=== PATIENT | male | born 1940 | race Caucasian/White ===

== ENCOUNTER 2017-01-12 21:48 | Inpatient (IN) | payer MEDICARE, MEDICAID ==
[~2017-01-12] VITALS: Ht 167.6 cm; Wt 77.1 kg
[~2017-01-12 21:48] MED LIST: ALLO100T PO; ASPI-1158 PO; BISA-81 PO; CALC667C PO; CARV6.2548 PO; FISH1CAP38 PO; FURO80TA3 PO; LABE300T PO; LEVO25TA7 PO; LINA145C PO; LOSA100T14 PO; NATE120T PO; OMEG1CAP17 PO; OMEP20CA10 PO; PRAV80TA21 PO; REN800 PO
[2017-01-12] MEDS ORDERED: ONDANSETRON HCL 4MG/2ML VIAL IV STA (22:20)
[2017-01-12] MEDS ORDERED: SODIUM CHLORIDE 0.9% 1,000 ML IV ONE (22:20)
[2017-01-12 22:43] LABS: BASOPHILS % 0.8 % (0.0-2.0); HEMATOCRIT. 28.7 % (42.0-52.0); HEMOGLOBIN. 9.6 g/dL (14.0-18.0); LYMPHOCYTES % 14.3 % (20.0-50.0); MEAN CORPUSCULAR HEMOGLOBIN 33.1 pg (28.0-32.0); MEAN CORPUSCULAR VOLUME 99.2 fL (80.0-94.0); MEAN PLATELET VOLUME 8.3 fl (7.4-10.4); MONOCYTES % 9.9 % (2.0-8.0); PLATELET 120 x1000/uL (130-400); RED BLOOD CELL COUNT 2.89 mill/uL (4.7-6.1); RED CELL DISTRIBUTION WIDTH 14.4 % (11.6-14.6)
[2017-01-12 22:45] LABS: INR 1.1; PROTHROMBIN TIME 11.1 sec (9.4-11.6)
[2017-01-12 22:49] LABS: CHLORIDE 108 mEq/L (98-107)
[2017-01-12 22:51] LABS: CARBON DIOXIDE 25 mEq/L (21-32)
[2017-01-12 22:58] LABS: TROPONIN I 0.04 ng/mL (0.00-0.04)
[2017-01-12] MEDS ORDERED: INSULIN REGULAR (HUMULIN R) 300UNITS/3ML IV ONE (23:00)
[2017-01-12] MEDS ORDERED: SODIUM BICARBONATE 8.4% 1 MEQ/ML 50ML SYR IV ONE (23:00)
[2017-01-12] MEDS ORDERED: DEXTROSE 50% WATER 50ML SYRINGE IV ONE (23:00)
[2017-01-12] MEDS ORDERED: CALCIUM CHLORIDE 1GM/10ML SYR IV ONE (23:00)
[2017-01-12] MEDS ORDERED: SODIUM POLYSTYRENE SULFONATE 15 G/60 ML BOT PO ONE (23:00)
[2017-01-13] MEDS ORDERED: LEVOFLOXACIN 750MG PREMIX 150 ML IV ONE (00:30)
[2017-01-13 07:30] LABS: COLOR URINE YELLOW (YELLOW); GLUCOSE URINE NEGATIVE (NEGATIVE); KETONES URINE NEGATIVE (NEGATIVE); LEUKOCYTE ESTERASE URINE NEGATIVE (NEGATIVE); NITRITE URINE NEGATIVE (NEGATIVE); OCCULT BLOOD URINE NEGATIVE (NEGATIVE); PROTEIN URINE 2+ (NEGATIVE); SPECIFIC GRAVITY URINE 1.015 (1.005-1.030)
[2017-01-13] MEDS ORDERED: INSULIN LISPRO 100 UNITS/ML SUBCUT SCH (07:50)
[2017-01-13] MEDS: BLOOD SUGAR DIAGNOSTIC STRIP TEST SCH ×4 (09:00→21:01)
[2017-01-13] MEDS ORDERED: FAMOTIDINE 20MG TABLET PO SCH (09:00)
[2017-01-13] MEDS: LOSARTAN POTASSIUM 100 MG TABLET PO SCH (10:00)
[2017-01-13] MEDS: ASPIRIN 81MG TABLET PO SCH (10:01)
[2017-01-13] MEDS: ALLOPURINOL 100 MG TABLET PO SCH (10:01)
[2017-01-13] MEDS: LEVOTHYROXINE SODIUM 50MCG TABLET PO SCH (10:01)
[2017-01-13] MEDS: FAMOTIDINE 20MG TABLET PO SCH (10:01)
[2017-01-13] MEDS: LABETALOL HCL 300MG TABLET PO SCH ×2 (10:02→20:49)
[2017-01-13] MEDS ORDERED: LIDOCAINE HCL/PF 1% 2ML VIAL ONE (11:07)
[2017-01-13 11:09] VITALS: BP 149/83
[2017-01-13] MEDS ORDERED: CLONIDINE 0.1MG TABLET PO PRN (11:15)
[2017-01-13 11:37] LABS: BG BASE EXCESS -1.7 mmol/L (-2.0-2.0); BG CARBOXYHEMOGLOBIN 0.3 % (0.5-1.5); BG DEOXYHEMOGLOBIN 6.6 % (0.0-5.0); BG HCO3 ACT 23.4 mmol/L (22.0-26.0); BG OXYGEN SATURATION 93.4 % (92.0-98.5); BG OXYHEMOGLOBIN 93.1 % (94.0-97.0); BG PCO2 41.2 mmHg (35.0-45.0); BG PH 7.372 (7.350-7.450); BG SAMPLE SITE RIGHT RADIAL; BG TOTAL HEMOGLOBIN 9.9 g/dL (12.0-18.0); BG VENT MODE ROOM AIR
[2017-01-13 11:57] LABS: PHOSPHORUS 4.1 mg/dL (2.5-4.9)
[2017-01-13] MEDS ORDERED: PIPERACILLIN/TAZ 2.25G PREMIX 50 ML IV SCH (12:00)
[2017-01-13] MEDS: INSULIN LISPRO (LOW DOSE) 100 UNITS/ML SUBCUT SCH ×2 (12:10→16:36)
[2017-01-13] MEDS: NATEGLINIDE 120 MG PO SCH ×2 (14:32→16:46)
[2017-01-13] MEDS: BISACODYL 5MG TABLET PO SCH (14:32)
[2017-01-13] MEDS: PIPERACILLIN/TAZ 2.25G PREMIX 50 ML IV SCH ×2 (14:32→21:12)
[2017-01-13] MEDS: SEVELAMER CARBONATE 800 MG TABLET PO SCH ×2 (14:33→16:46)
[2017-01-13] MEDS: LINZESS 145 MCG PO SCH (14:33)
[2017-01-13 16:00] VITALS: BP 140/79
[2017-01-13] MEDS ORDERED: HEPARIN SODIUM 1,000 UNIT/1ML VIAL IV NR (17:19)
[2017-01-13 20:00] VITALS: BP 155/52
[2017-01-13] MEDS ORDERED: EPOETIN ALFA 10000UNITS/ML VIAL SUBCUT SCH (21:00)
[2017-01-13] MEDS: ATORVASTATIN CALCIUM 40MG TABLET PO SCH (21:12)
[2017-01-13] MEDS ORDERED: ACETAMINOPHEN 325MG TABLET PO PRN (21:45)
[2017-01-13 22:00] VITALS: BP 127/55
[2017-01-14] VITALS (8 sets, daily range): BP systolic 116–160; BP diastolic 49–94
[2017-01-14] MEDS: PIPERACILLIN/TAZ 2.25G PREMIX 50 ML IV SCH ×3 (05:10→22:05)
[2017-01-14] MEDS: LEVOTHYROXINE SODIUM 50MCG TABLET PO SCH (06:41)
[2017-01-14] MEDS: NATEGLINIDE 120 MG PO SCH ×3 (06:42→18:34)
[2017-01-14] MEDS: SEVELAMER CARBONATE 800 MG TABLET PO SCH ×3 (06:42→18:34)
[2017-01-14] MEDS: INSULIN LISPRO (LOW DOSE) 100 UNITS/ML SUBCUT SCH ×3 (06:42→17:10)
[2017-01-14] MEDS: BLOOD SUGAR DIAGNOSTIC STRIP TEST SCH ×4 (06:42→20:24)
[2017-01-14 06:52] LABS: HEMATOCRIT. 25.6 % (42.0-52.0); HEMOGLOBIN. 8.7 g/dL (14.0-18.0); MEAN CORPUSCULAR VOLUME 97.2 fL (80.0-94.0); PLATELET 93 x1000/uL (130-400); RED BLOOD CELL COUNT 2.64 mill/uL (4.7-6.1); RED CELL DISTRIBUTION WIDTH 13.9 % (11.6-14.6)
[2017-01-14 08:31] LABS: PLATELET ESTIMATE DECREASED
[2017-01-14] MEDS: LINZESS 145 MCG PO SCH (09:32)
[2017-01-14] MEDS: ALLOPURINOL 100 MG TABLET PO SCH (09:33)
[2017-01-14] MEDS: FAMOTIDINE 20MG TABLET PO SCH (09:33)
[2017-01-14] MEDS: ASPIRIN 81MG TABLET PO SCH (09:34)
[2017-01-14] MEDS: LABETALOL HCL 300MG TABLET PO SCH ×2 (09:34→21:59)
[2017-01-14] MEDS: LOSARTAN POTASSIUM 100 MG TABLET PO SCH (09:34)
[2017-01-14] MEDS: BISACODYL 5MG TABLET PO SCH (09:36)
[2017-01-14] MEDS ORDERED: LACTULOSE 20G/30ML UDC PO NR (12:00)
[2017-01-14 13:56] LABS: FOLIC ACID (FOLATE) SERUM 9.6 ng/mL (>5.38)
[2017-01-14] MEDS: SENNOSIDES/DOCUSATE SOD 8.6/50MG TABLET PO SCH (14:00)
[2017-01-14] MEDS: IRON SUCROSE COMPLEX 100 MG/5 ML ML IV SCH (14:00)
[2017-01-14] MEDS ORDERED: SORBITOL 70% SOLN 30ML PO NR (15:00)
[2017-01-14] MEDS: ATORVASTATIN CALCIUM 40MG TABLET PO SCH (21:59)
[2017-01-15] VITALS: BP 118/61
[2017-01-15 04:00] VITALS: BP 144/75
[2017-01-15] MEDS: PIPERACILLIN/TAZ 2.25G PREMIX 50 ML IV SCH ×2 (05:26→13:03)
[2017-01-15] MEDS: BLOOD SUGAR DIAGNOSTIC STRIP TEST SCH ×2 (06:01→11:15)
[2017-01-15] MEDS: INSULIN LISPRO (LOW DOSE) 100 UNITS/ML SUBCUT SCH ×2 (06:04→11:15)
[2017-01-15] MEDS ORDERED: LEVOTHYROXINE SODIUM 75MCG TABLET PO SCH (07:10)
[2017-01-15 07:16] LABS: BASOPHILS % 0.7 % (0.0-2.0); EOSINOPHILS % 5.7 % (0.0-5.0); HEMATOCRIT. 26.8 % (42.0-52.0); HEMOGLOBIN. 8.9 g/dL (14.0-18.0); LYMPHOCYTES % 14.1 % (20.0-50.0); MEAN CORPUSCULAR HEMOGLOBIN 32.7 pg (28.0-32.0); MEAN CORPUSCULAR VOLUME 97.7 fL (80.0-94.0); MEAN PLATELET VOLUME 8.8 fl (7.4-10.4); MONOCYTES % 13.7 % (2.0-8.0); NEUTROPHILS % 65.8 % (40.0-76.0); PLATELET 105 x1000/uL (130-400); RED BLOOD CELL COUNT 2.74 mill/uL (4.7-6.1); RED CELL DISTRIBUTION WIDTH 14.1 % (11.6-14.6)
[2017-01-15 07:54] LABS: T4 FREE 1.23 ng/dL (0.76-1.46)
[2017-01-15 08:00] VITALS: BP 154/74
[2017-01-15] MEDS: BISACODYL 5MG TABLET PO SCH (08:32)
[2017-01-15] MEDS: NATEGLINIDE 120 MG PO SCH ×2 (08:32→11:42)
[2017-01-15] MEDS: LOSARTAN POTASSIUM 100 MG TABLET PO SCH (08:32)
[2017-01-15] MEDS: SEVELAMER CARBONATE 800 MG TABLET PO SCH ×2 (08:32→11:42)
[2017-01-15] MEDS: ALLOPURINOL 100 MG TABLET PO SCH (08:32)
[2017-01-15] MEDS: FAMOTIDINE 20MG TABLET PO SCH (08:32)
[2017-01-15] MEDS: ASPIRIN 81MG TABLET PO SCH (08:32)
[2017-01-15] MEDS: LABETALOL HCL 300MG TABLET PO SCH (08:33)
[2017-01-15] MEDS: SENNOSIDES/DOCUSATE SOD 8.6/50MG TABLET PO SCH (08:33)
[2017-01-15] MEDS: LINZESS 145 MCG PO SCH (08:33)
[2017-01-15] MEDS ORDERED: POLYETHYLENE GLYCOL 3350 (17GM) 1 DOSE PACK PO SCH (09:00)
[2017-01-15] MEDS ORDERED: FOLIC ACID/VITAMIN B COMP W-C TABLET PO SCH (11:00)
[2017-01-15 12:00] VITALS: BP 120/57
[2017-01-15] MEDS: IRON SUCROSE COMPLEX 100 MG/5 ML ML IV SCH (13:03)
[2017-01-15 14:02] VITALS: BP 120/57
[2017-01-15] MEDS ORDERED: EPOETIN ALFA 4000UNITS/ML VIAL SUBCUT SCH (21:00)
== END 2017-01-15 15:30 | disposition home or self-care (01) | DRG 291 ==
LOC: ER 22:16 → EDBEDREQ 01-13 01:24 → 8WST 01-13 03:45 → EDBEDREQSVC 01-13 07:43 → ENRESERV 01-13 07:51
PROVIDERS: ADMIT Internal Medicine Endocrinology, Diabetes & Metabolism; ATTEND Internal Medicine Endocrinology, Diabetes & Metabolism
DX: I13.2 Hypertensive heart and chronic kidney disease with heart failure and with stage 5 chronic kidney disease, or end stage renal disease (principal); I50.21 Acute systolic (congestive) heart failure; J18.9 Pneumonia, unspecified organism; N18.6 End stage renal disease; E11.21 Type 2 diabetes mellitus with diabetic nephropathy; D69.6 Thrombocytopenia, unspecified; E11.22 Type 2 diabetes mellitus with diabetic chronic kidney disease; E11.42 Type 2 diabetes mellitus with diabetic polyneuropathy; E11.51 Type 2 diabetes mellitus with diabetic peripheral angiopathy without gangrene; K56.7 Ileus, unspecified; N25.81 Secondary hyperparathyroidism of renal origin; E87.5 Hyperkalemia; E11.319 Type 2 diabetes mellitus with unspecified diabetic retinopathy without macular edema; E03.9 Hypothyroidism, unspecified; I25.10 Atherosclerotic heart disease of native coronary artery without angina pectoris; I25.5 Ischemic cardiomyopathy; K52.9 Noninfective gastroenteritis and colitis, unspecified; Z99.2 Dependence on renal dialysis; N30.90 Cystitis, unspecified without hematuria; D50.9 Iron deficiency anemia, unspecified; D53.9 Nutritional anemia, unspecified; E78.5 Hyperlipidemia, unspecified; H54.7 Unspecified visual loss; K29.50 Unspecified chronic gastritis without bleeding; M10.9 Gout, unspecified; N32.89 Other specified disorders of bladder; N40.1 Benign prostatic hyperplasia with lower urinary tract symptoms; Z82.49 Family history of ischemic heart disease and other diseases of the circulatory system; Z90.49 Acquired absence of other specified parts of digestive tract; I25.2 Old myocardial infarction; Z90.79 Acquired absence of other genital organ(s); Z95.0 Presence of cardiac pacemaker; Z95.5 Presence of coronary angioplasty implant and graft; Z95.810 Presence of automatic (implantable) cardiac defibrillator; Z98.41 Cataract extraction status, right eye; Z98.42 Cataract extraction status, left eye
CPT/HCPCS: 36415; 36600; 71010; 74010; 74176; 80048; 80053; 81001; 82375; 82533; 82607; 82728; 82746; 82805; 82962; 83036; 83540; 83550; 83605; 83690; 83880; 83970; 84100; 84439; 84443; 84484; 85007; 85025; 85027; 85610; 87040; 87086; 93005; 93306; 96361; 96365; 96372; 96375; 99291; J0885; J1644; J1815; J1956; J2405; J2543; J3490; J7030; J7040

== ENCOUNTER 2019-06-25 10:53 | Inpatient (IN) | payer MEDICARE, MEDICAID ==
[~2019-06-25] VITALS: Ht 167.6 cm; Wt 68.7 kg
[~2019-06-25 10:53] MED LIST changes: +FAMO20TA8 PO; -LABE300T PO; +LABE300T3 PO; -LOSA100T14 PO; +LOSA100T32 PO; -OMEP20CA10 PO; +OMEP20CA14 PO
[2019-06-25 13:31] LABS: BASOPHILS % 0.5 % (0.0-2.0); EOSINOPHILS % 2.4 % (0.0-5.0); HEMATOCRIT. 34.3 % (42.0-52.0); HEMOGLOBIN. 11.2 g/dL (14.0-18.0); LYMPHOCYTES % 9.6 % (20.0-50.0); MEAN CORPUSCULAR HEMOGLOBIN 33.1 pg (28.0-32.0); MEAN CORPUSCULAR VOLUME 101.3 fL (80.0-94.0); MEAN PLATELET VOLUME 8.7 fl (7.4-10.4); MONOCYTES % 10.8 % (2.0-8.0); NEUTROPHILS % 76.7 % (40.0-76.0); PLATELET 213 x1000/uL (130-400); RED BLOOD CELL COUNT 3.38 mill/uL (4.7-6.1); RED CELL DISTRIBUTION WIDTH 14.1 % (11.6-14.6)
[2019-06-25 13:35] LABS: CHLORIDE 100 mEq/L (98-107)
[2019-06-25] MEDS ORDERED: METHYLPREDNISOLONE SOD SUCC 125 MG/2 ML VIAL IV STA (14:50)
[2019-06-25] MEDS ORDERED: LEVOFLOXACIN 750MG PREMIX 150 ML IV ONE (15:00)
[2019-06-25] MEDS ORDERED: IPRATROPIUM/ALBUTEROL 0.5-3(2.5)MG/3ML NEB HHN ONE (15:00)
[2019-06-25 15:46] LABS: ETHANOL BLOOD < 10 mg/dL
[2019-06-25] MEDS ORDERED: CLONIDINE 0.1MG TABLET PO PRN (18:00)
[2019-06-25] MEDS ORDERED: ONDANSETRON HCL 4MG/2ML INJ IV PRN (18:00)
[2019-06-25] MEDS ORDERED: ENOXAPARIN 40MG/0.4ML SYR SUBCUT SCH (18:00)
[2019-06-25] MEDS ORDERED: ACETAMINOPHEN 325MG TABLET PO PRN (18:00)
[2019-06-25] MEDS ORDERED: DOCUSATE SODIUM 100MG CAPSULE PO PRN (18:00)
[2019-06-25] MEDS ORDERED: HYDROCODONE/ACETAMINOPHEN 5/325MG TABLET PO PRN (18:15)
[2019-06-25] MEDS ORDERED: LEVOFLOXACIN 250MG PREMIX 50 ML IV SCH (18:15)
[2019-06-25 20:55] VITALS: BP 183/83
[2019-06-25] MEDS ORDERED: DEXTROSE 50% WATER 50ML SYRINGE IV PRN (22:00)
[2019-06-25] MEDS: ATORVASTATIN CALCIUM 40MG TABLET PO SCH (22:10)
[2019-06-25] MEDS: LOSARTAN POTASSIUM 100 MG TABLET PO SCH (22:10)
[2019-06-25] MEDS: LABETALOL HCL 300MG TABLET PO SCH (22:10)
[2019-06-25] MEDS: ENOXAPARIN 30MG/0.3ML SYR SUBCUT SCH (22:11)
[2019-06-26] VITALS: BP 160/77
[2019-06-26] MEDS: IPRATROPIUM/ALBUTEROL 0.5-3(2.5)MG/3ML NEB NEB SCH ×4 (03:08→20:33)
[2019-06-26 04:00] VITALS: BP 128/56
[2019-06-26 06:55] LABS: HEMATOCRIT. 33.4 % (42.0-52.0); HEMOGLOBIN. 11.3 g/dL (14.0-18.0); MEAN CORPUSCULAR HEMOGLOBIN 33.6 pg (28.0-32.0); MEAN CORPUSCULAR VOLUME 99.4 fL (80.0-94.0); PLATELET 228 x1000/uL (130-400); RED BLOOD CELL COUNT 3.36 mill/uL (4.7-6.1)
[2019-06-26] MEDS: BLOOD SUGAR DIAGNOSTIC STRIP TEST SCH ×4 (07:40→20:58)
[2019-06-26] MEDS: NATEGLINIDE 60MG TABLET PO SCH ×2 (07:40→18:25)
[2019-06-26 08:00] VITALS: BP 147/56
[2019-06-26 08:39] LABS: CHLORIDE 98 mEq/L (98-107)
[2019-06-26 08:48] LABS: LDL CHOLESTEROL 77 mg/dL (5-100)
[2019-06-26 08:50] LABS: HDL CHOLESTEROL 42 mg/dL (40-59)
[2019-06-26] MEDS: SEVELAMER CARBONATE 800 MG TABLET PO SCH ×3 (09:29→18:24)
[2019-06-26] MEDS: LABETALOL HCL 300MG TABLET PO SCH ×2 (09:29→21:05)
[2019-06-26] MEDS: FOLIC ACID/VITAMIN B COMP W-C TABLET PO SCH (09:29)
[2019-06-26] MEDS: LOSARTAN POTASSIUM 100 MG TABLET PO SCH (09:30)
[2019-06-26] MEDS: LEVOTHYROXINE SODIUM 25MCG TABLET PO SCH (09:30)
[2019-06-26] MEDS: ALLOPURINOL 100 MG TABLET PO SCH (09:30)
[2019-06-26] MEDS: INSULIN LISPRO 100 UNITS/ML SUBCUT SCH ×4 (09:35→21:05)
[2019-06-26 12:00] VITALS: BP 158/63
[2019-06-26 16:14] VITALS: BP 123/57
[2019-06-26 20:00] VITALS: BP 121/62
[2019-06-26] MEDS: ATORVASTATIN CALCIUM 40MG TABLET PO SCH (21:06)
[2019-06-26] MEDS: ENOXAPARIN 30MG/0.3ML SYR SUBCUT SCH (21:07)
[2019-06-27] VITALS: BP 106/44
[2019-06-27] MEDS: IPRATROPIUM/ALBUTEROL 0.5-3(2.5)MG/3ML NEB NEB SCH ×4 (02:11→21:21)
[2019-06-27 04:00] VITALS: BP 117/55
[2019-06-27 05:44] LABS: PLATELET ESTIMATE NORMAL
[2019-06-27 07:37] LABS: BASOPHILS % 0.3 % (0.0-2.0); EOSINOPHILS % 0.5 % (0.0-5.0); HEMATOCRIT. 35.8 % (42.0-52.0); HEMOGLOBIN. 11.5 g/dL (14.0-18.0); LYMPHOCYTES % 8.9 % (20.0-50.0); MEAN CORPUSCULAR HEMOGLOBIN 32.1 pg (28.0-32.0); MEAN CORPUSCULAR VOLUME 99.6 fL (80.0-94.0); MEAN PLATELET VOLUME 8.9 fl (7.4-10.4); MONOCYTES % 7.4 % (2.0-8.0); NEUTROPHILS % 82.9 % (40.0-76.0); PLATELET 271 x1000/uL (130-400); RED BLOOD CELL COUNT 3.59 mill/uL (4.7-6.1); RED CELL DISTRIBUTION WIDTH 13.7 % (11.6-14.6)
[2019-06-27 08:00] VITALS: BP 123/62
[2019-06-27] MEDS: INSULIN LISPRO 100 UNITS/ML SUBCUT SCH ×4 (08:10→21:32)
[2019-06-27] MEDS: BLOOD SUGAR DIAGNOSTIC STRIP TEST SCH ×4 (08:11→20:51)
[2019-06-27] MEDS: LEVOTHYROXINE SODIUM 25MCG TABLET PO SCH (08:42)
[2019-06-27] MEDS: FOLIC ACID/VITAMIN B COMP W-C TABLET PO SCH (08:42)
[2019-06-27] MEDS: NATEGLINIDE 60MG TABLET PO SCH ×2 (08:42→17:40)
[2019-06-27] MEDS: LOSARTAN POTASSIUM 100 MG TABLET PO SCH (08:42)
[2019-06-27] MEDS: SEVELAMER CARBONATE 800 MG TABLET PO SCH ×3 (08:42→18:42)
[2019-06-27] MEDS: ALLOPURINOL 100 MG TABLET PO SCH (08:43)
[2019-06-27] MEDS: LABETALOL HCL 300MG TABLET PO SCH ×2 (08:44→20:52)
[2019-06-27] MEDS ORDERED: LEVOFLOXACIN 250MG PREMIX 50 ML IV SCH (11:00)
[2019-06-27 12:00] VITALS: BP 122/59
[2019-06-27 16:00] VITALS: BP 113/50
[2019-06-27 20:00] VITALS: BP 114/47
[2019-06-27] MEDS: ATORVASTATIN CALCIUM 40MG TABLET PO SCH (20:50)
[2019-06-27] MEDS: ENOXAPARIN 30MG/0.3ML SYR SUBCUT SCH (20:51)
[2019-06-28] VITALS: BP 120/56
[2019-06-28] MEDS: IPRATROPIUM/ALBUTEROL 0.5-3(2.5)MG/3ML NEB NEB SCH ×3 (01:38→12:56)
[2019-06-28 04:00] VITALS: BP 122/56
[2019-06-28] MEDS: BLOOD SUGAR DIAGNOSTIC STRIP TEST SCH ×2 (05:47→13:03)
[2019-06-28] MEDS: INSULIN LISPRO 100 UNITS/ML SUBCUT SCH ×2 (07:34→13:03)
[2019-06-28 08:00] VITALS: BP 120/67
[2019-06-28] MEDS: NATEGLINIDE 60MG TABLET PO SCH (08:04)
[2019-06-28] MEDS: LOSARTAN POTASSIUM 100 MG TABLET PO SCH (08:04)
[2019-06-28] MEDS: LEVOTHYROXINE SODIUM 25MCG TABLET PO SCH (08:04)
[2019-06-28] MEDS: ALLOPURINOL 100 MG TABLET PO SCH (08:04)
[2019-06-28] MEDS: FOLIC ACID/VITAMIN B COMP W-C TABLET PO SCH (08:04)
[2019-06-28] MEDS: SEVELAMER CARBONATE 800 MG TABLET PO SCH ×2 (08:06→13:29)
[2019-06-28] MEDS: LABETALOL HCL 300MG TABLET PO SCH (08:33)
[2019-06-28 12:26] VITALS: BP 125/73
[2019-06-28 13:58] VITALS: BP 125/73
== END 2019-06-28 15:00 | disposition home or self-care (01) | DRG 291 ==
LOC: ER 10:53 → 7WST 18:59 → EDBEDREQTM 19:04 → EDBEDREQ 19:04 → ENRESERV 20:32
PROVIDERS: ADMIT Internal Medicine Nephrology; ATTEND Internal Medicine Nephrology
PROC: 5A1D70Z Performance of Urinary Filtration, Intermittent, Less than 6 Hours Per Day (ICD-10-PCS; principal; 2019-06-25)
PROC: 5A1D70Z Performance of Urinary Filtration, Intermittent, Less than 6 Hours Per Day (ICD-10-PCS; 2019-06-26)
DX: I13.2 Hypertensive heart and chronic kidney disease with heart failure and with stage 5 chronic kidney disease, or end stage renal disease (principal); N18.6 End stage renal disease; I50.21 Acute systolic (congestive) heart failure; J20.9 Acute bronchitis, unspecified; D64.9 Anemia, unspecified; E03.9 Hypothyroidism, unspecified; E11.22 Type 2 diabetes mellitus with diabetic chronic kidney disease; E87.5 Hyperkalemia; E78.5 Hyperlipidemia, unspecified; I25.10 Atherosclerotic heart disease of native coronary artery without angina pectoris; I25.5 Ischemic cardiomyopathy; I27.20 Pulmonary hypertension, unspecified; J06.9 Acute upper respiratory infection, unspecified; E11.319 Type 2 diabetes mellitus with unspecified diabetic retinopathy without macular edema; E11.21 Type 2 diabetes mellitus with diabetic nephropathy; E11.40 Type 2 diabetes mellitus with diabetic neuropathy, unspecified; K80.20 Calculus of gallbladder without cholecystitis without obstruction; M10.9 Gout, unspecified; Z79.4 Long term (current) use of insulin; Z79.82 Long term (current) use of aspirin; Z79.899 Other long term (current) drug therapy; I25.2 Old myocardial infarction; Z82.49 Family history of ischemic heart disease and other diseases of the circulatory system; Z90.49 Acquired absence of other specified parts of digestive tract; Z98.41 Cataract extraction status, right eye; Z98.42 Cataract extraction status, left eye; Z98.61 Coronary angioplasty status; Z99.2 Dependence on renal dialysis; Z95.810 Presence of automatic (implantable) cardiac defibrillator
CPT/HCPCS: 36415; 71045; 80048; 80053; 80061; 80320; 82962; 83605; 83735; 83880; 84484; 85025; 87804; 93005; 93306; 93970; 94640; 96365; 99285; J1650; J1815; J1956; J2930; G0480

== ENCOUNTER 2022-01-05 05:50 | Inpatient (IN) | payer MEDICARE, MEDICAID ==
[2022-01-05] VITALS (7 sets, daily range): BP systolic 127–191; BP diastolic 71–93
[~2022-01-05] VITALS: Ht 172.7 cm; Wt 83.0 kg
[~2022-01-05 05:50] MED LIST changes: -ASPI-1158 PO; +ASPI-1406 PO; -OMEG1CAP17 PO
[2022-01-05] MEDS ORDERED: LIDOCAINE HCL/PF 1% 10 MG/ML 5ML VIAL ONE ×2 (06:57→08:30)
[2022-01-05] MEDS ORDERED: CEFAZOLIN SODIUM 1000MG/VIAL ONE ×2 (06:57→09:07)
[2022-01-05] MEDS ORDERED: HEPARIN 1000 UNITS/ML 10ML ONE (06:58)
[2022-01-05] MEDS ORDERED: IODIXANOL 320MG/ML 100 ML BOTTLE IV ONE (06:58)
[2022-01-05] MEDS ORDERED: GENTAMICIN SULF 40MG/ML 2ML VIAL ONE (07:23)
[2022-01-05] MEDS ORDERED: GENTAMICIN/NS IRRIGATION 500 ML IR ONE (07:24)
[2022-01-05 08:12] LABS: HEMATOCRIT 34.2 % (42.0-52.0); HEMOGLOBIN 11.5 g/dL (14.0-18.0); MEAN CORPUSCULAR HEMOGLOBIN 33.2 pg (28.0-32.0); PLATELET 158 x1000/uL (130-400); RED BLOOD CELL COUNT 3.45 mill/uL (4.7-6.1); RED CELL DISTRIBUTION WIDTH 14.2 % (11.6-14.6)
[2022-01-05] MEDS ORDERED: FENTANYL CITRATE/PF 50MCG/ML 2ML VIAL ONE (08:18)
[2022-01-05] MEDS ORDERED: MIDAZOLAM HCL 2 MG/2 ML VIAL ONE (08:18)
[2022-01-05] MEDS ORDERED: ONDANSETRON HCL 4MG/2ML INJ ONE (08:19)
[2022-01-05] MEDS ORDERED: PROPOFOL 200MG/20ML VIAL IV ONE (08:19)
[2022-01-05] MEDS ORDERED: DEXAMETHASONE 4MG/ML 1ML VIAL ONE (08:20)
[2022-01-05 08:23] LABS: PROTHROMBIN TIME 10.9 sec (9.6-11.0)
[2022-01-05] MEDS: ASPIRIN 81MG EC TABLET PO SCH (09:00)
[2022-01-05] MEDS ORDERED: FAMOTIDINE(NEO) 1MG/ML SUSP PO SCH (09:00)
[2022-01-05] MEDS ORDERED: HYDROCODONE/ACETAMINOPHEN 5/325MG TABLET PO PRN (10:00)
[2022-01-05] MEDS ORDERED: FENTANYL CITRATE/PF 50MCG/ML 2ML VIAL IV PRN (10:30)
[2022-01-05] MEDS ORDERED: HYDRALAZINE 20MG/ML VIAL IV NR (10:30)
[2022-01-05] MEDS ORDERED: NALOXONE HCL 0.4MG/ML VIAL IV PRN (10:45)
[2022-01-05] MEDS: CALCIUM ACETATE 667MG CAPSULE PO SCH ×2 (15:33→18:00)
[2022-01-05] MEDS ORDERED: DEXTROSE 50% WATER 50ML SYRINGE IV PRN (16:15)
[2022-01-05 16:57] LABS: HEPATITIS B SURFACE ANTIGEN NEGATIVE
[2022-01-05] MEDS: INSULIN LISPRO 100 UNITS/ML SUBCUT SCH ×2 (18:00→21:00)
[2022-01-05] MEDS: BLOOD SUGAR DIAGNOSTIC STRIP TEST SCH ×2 (18:28→21:00)
[2022-01-05] MEDS ORDERED: FAMOTIDINE 20MG TABLET PO SCH (21:00)
[2022-01-05] MEDS: HYDRALAZINE HCL 100MG TABLET PO SCH ×2 (22:30→22:48)
[2022-01-05] MEDS ORDERED: CLONIDINE 0.2MG TABLET PO PRN (22:30)
[2022-01-05] MEDS: LABETALOL HCL 300MG TABLET PO SCH (22:47)
[2022-01-06] VITALS (7 sets, daily range): BP systolic 143–162; BP diastolic 60–100
[2022-01-06 06:00] LABS: BASOPHILS % 0.5 % (0.0-2.0); EOSINOPHILS % 0.2 % (0.0-5.0); HEMATOCRIT. 32.5 % (42.0-52.0); LYMPHOCYTES % 7.2 % (20.0-50.0); MEAN CORPUSCULAR HEMOGLOBIN 33.6 pg (28.0-32.0); MEAN CORPUSCULAR VOLUME 99.2 fL (80.0-94.0); MEAN PLATELET VOLUME 8.4 fl (7.4-10.4); NEUTROPHILS % 82.1 % (40.0-76.0); PLATELET 165 x1000/uL (130-400); RED BLOOD CELL COUNT 3.28 mill/uL (4.7-6.1); RED CELL DISTRIBUTION WIDTH 14.6 % (11.6-14.6)
[2022-01-06] MEDS: HYDRALAZINE HCL 100MG TABLET PO SCH (06:45)
[2022-01-06] MEDS ORDERED: LEVOTHYROXINE SODIUM 25MCG TABLET PO SCH (07:00)
[2022-01-06] MEDS ORDERED: OMEPRAZOLE 20MG CAPSULE EXTENDED RELEASE PO SCH (07:00)
[2022-01-06] MEDS: BLOOD SUGAR DIAGNOSTIC STRIP TEST SCH (07:06)
[2022-01-06] MEDS: INSULIN LISPRO 100 UNITS/ML SUBCUT SCH (08:00)
[2022-01-06] MEDS: ASPIRIN 81MG EC TABLET PO SCH (08:44)
[2022-01-06] MEDS: CALCIUM ACETATE 667MG CAPSULE PO SCH (08:44)
[2022-01-06] MEDS ORDERED: FISH OIL/OMEGA-3 FATTY ACIDS 1000MG CAPSULE PO SCH (09:00)
[2022-01-06] MEDS: LABETALOL HCL 300MG TABLET PO SCH (09:00)
[2022-01-06] MEDS ORDERED: LOSARTAN POTASSIUM 100 MG TABLET PO SCH (09:00)
== END 2022-01-06 11:45 | disposition home or self-care (01) | DRG 245 ==
LOC: CCL 05:50 → 5EST 05:51
PROVIDERS: ADMIT Internal Medicine Clinical Cardiac Electrophysiology; ATTEND Internal Medicine Clinical Cardiac Electrophysiology
PROC: 5A1D70Z Performance of Urinary Filtration, Intermittent, Less than 6 Hours Per Day (ICD-10-PCS; principal; 2022-01-05)
PROC: 0JH608Z Insertion of Defibrillator Generator into Chest Subcutaneous Tissue and Fascia, Open Approach (ICD-10-PCS; 2022-01-05)
PROC: 0JPT0PZ Removal of Cardiac Rhythm Related Device from Trunk Subcutaneous Tissue and Fascia, Open Approach (ICD-10-PCS; 2022-01-05)
DX: T82.111A Breakdown (mechanical) of cardiac pulse generator (battery), initial encounter (principal); N18.6 End stage renal disease; I13.2 Hypertensive heart and chronic kidney disease with heart failure and with stage 5 chronic kidney disease, or end stage renal disease; N25.81 Secondary hyperparathyroidism of renal origin; I50.22 Chronic systolic (congestive) heart failure; I42.0 Dilated cardiomyopathy; E03.9 Hypothyroidism, unspecified; E11.22 Type 2 diabetes mellitus with diabetic chronic kidney disease; J44.9 Chronic obstructive pulmonary disease, unspecified; Z20.822 Contact with and (suspected) exposure to COVID-19; I25.10 Atherosclerotic heart disease of native coronary artery without angina pectoris; E78.5 Hyperlipidemia, unspecified; D64.9 Anemia, unspecified; M10.9 Gout, unspecified; Z98.41 Cataract extraction status, right eye; Z98.42 Cataract extraction status, left eye; I25.2 Old myocardial infarction; Z90.49 Acquired absence of other specified parts of digestive tract; Z99.2 Dependence on renal dialysis; Z87.891 Personal history of nicotine dependence
CPT/HCPCS: 33264; 36415; 71045; 80048; 82962; 83036; 85025; 85027; 86705; 86709; 86803; 87340; 87426; 93005; 93640; C1882; C9803; J0360; J0690; J1100; J1580; J1644; J2250; J2405; J2704; J3010; J3490; Q9967

== ENCOUNTER 2025-01-06 10:10 | Emergency (ER) | payer MEDICARE, MEDICAID ==
[~2025-01-06] VITALS: Ht 172.7 cm; Wt 70.0 kg
[~2025-01-06 10:10] MED LIST changes: +AMLO10TA80 PO; -ASPI-1406 PO; -BISA-81 PO; -CALC667C PO; -CARV6.2548 PO; +CYAN250010 PO; -FISH1CAP38 PO; -FURO80TA3 PO; -LABE300T3 PO; -LEVO25TA7 PO; -LINA145C PO; -LOSA100T32 PO; +LOSA100T33 PO; -NATE120T PO; -OMEP20CA14 PO; -PRAV80TA21 PO; -REN800 PO
[2025-01-06 10:11] VITALS: O2SAT 98
[2025-01-06 10:14] VITALS: BP 0/0; PULSE 0; RESP 18; TEMP 36.1; O2SAT 98
[2025-01-06] MEDS ORDERED: DEXTROSE 50% WATER 50ML SYRINGE IV ONE (10:23)
[2025-01-06] MEDS ORDERED: NOREPINEPHRINE 8MG/250ML PMX 250 ML IV PRN (10:30)
== END 2025-01-06 13:06 ==
LOC: ER 10:10
DX: I46.9 Cardiac arrest, cause unspecified (principal); E11.9 Type 2 diabetes mellitus without complications; E78.00 Pure hypercholesterolemia, unspecified; I47.20 Ventricular tachycardia, unspecified; Z79.899 Other long term (current) drug therapy; Z95.0 Presence of cardiac pacemaker; Z99.2 Dependence on renal dialysis
CPT/HCPCS: 82962; 92950; 94664; 99291